=== PATIENT | female | born 1960 | race Caucasian/White ===

== ENCOUNTER 2016-06-24 09:55 | Inpatient (IN) | payer OTHER ==
[~2016-06-24] VITALS: Ht 149.9 cm; Wt 52.9 kg
[2016-06-24 09:57] VITALS: BP 134/85; PULSE 110; RESP 17; TEMP 98.6; O2SAT 97
[2016-06-24] MEDS ORDERED: ASPI1TAB69 PO (12:22)
[2016-06-24] MEDS ORDERED: NAPR220T95 PO (12:22)
[2016-06-24 12:27] LABS: AUTOMATED NEUTROPHIL # 8.7 TH/MM3 (1.8-7.7); BASOPHIL # 0.1 TH/MM3 (0-0.2); BASOPHIL % 0.5 % (0.0-2.0); EOSINOPHIL # 0.1 TH/MM3 (0-0.4); EOSINOPHIL % 0.5 % (0.0-4.0); HEMATOCRIT 43.9 % (35.0-46.0); HEMO FLAGS DIFF FINAL; MEAN CELL VOLUME 95.8 FL (80.0-100.0); MEAN CORPUSCULAR HEMOGLOBIN 31.8 PG (27.0-34.0); MEAN CORPUSCULAR HGB CONC 33.1 % (32.0-36.0); PLATELET COUNT 339 TH/MM3 (150-450); RED BLOOD COUNT 4.59 MIL/MM3 (4.00-5.30); RED CELL DISTRIBUTION WIDTH 13.3 % (11.6-17.2); WHITE BLOOD COUNT 11.2 TH/MM3 (4.0-11.0)
[2016-06-24] MEDS ORDERED: SODIUM CHLOR 0.9% 1000 ML INJ 1,000 ML IV SCH (12:32)
[2016-06-24 12:34] LABS: BLOOD, URINE TRACE (NEG); GLUCOSE,URINE NEG (NEG); KETONE, URINE NEG (NEG); NITRITE,URINE NEG (NEG); URINE COLOR LIGHT-YELLOW (YELLW/STRAW)
[2016-06-24 12:37] LABS: COMMENT (UR) CULT NOT INDICATED; CULTURE IF INDICATED CULT NOT INDICATED
--- NOTE | 2016-06-24 12:37 | PD ---
HPI Chief Complaint: Abdominal Pain Time Seen by Provider: 12:33 Travel History International Travel<30 days: No Contact w/Intl Traveler<30days: No Traveled to known affect area: No History of Present Illness HPI 56-year-old female that presents to the ED for evaluation of lower abdominal pain when she has to go urinate. Per patient also and she has a bowel movement. Per patient she's had some symptoms like this for a couple months and her doctor is aware of them and she supposed to get a colonoscopy at some point. Per patient she has not had any particular testing done for this recently. Per patient before used to be more like a pressure but now is becoming more sharp. Per patient usually happens when she has to go urinate and she tries not to urinate because of the pain. Per patient the pain is in the bladder area but not really when she sees. Per patient she does have pain to move to the left quadrant. She denies any vaginal discharge or bleeding. She denies any bowel movement issues. She denies any fevers chills or sweats. No recent surgery to the abdomen and the only surgery she suffered had was a tubal ligation on her abdomen. She denies any trauma. Per patient the symptoms have been worsening this week. The patient since Monday the symptoms seemed to have progressively gotten worse and more painful where she doesn't want appear anymore because it causes her a lot of discomfort. She denies any blood in the urine. She has a history of kidney stones. Per patient the pain gets to be 8 out of 10-10 out of 10. She has not been able to follow with her doctor for this. Denies any chest pain or shortness of breath. No other medical problems reported to me today. PFSH Past Medical History Diminished Hearing: No Respiratory: Yes (EMPHYSEMA, COPD , MASS RIGHT LUNG) Tetanus Vaccination: > 5 Years Influenza Vaccination: No ?: Not Menopausal: Yes Past Surgical History Other Surgery: Yes (brain sx/ cyst removed righ breast) Social History Alcohol Use: Yes (every day a couple beers) Tobacco Use: Yes Substance Use: No Allergies-Medications (Allergen,Severity, Reaction): Coded Allergies: No Known Allergies (Unverified , 06/24/16) Reported Meds & Prescriptions Reported Meds & Active Scripts Active Reported Aspirin 81 Mg Tabdr 81 Mg PO DAILY Aleve (Naproxen Sodium) 220 Mg Tab 220 Mg PO BID PRN Review of Systems Except as stated in HPI: all other systems reviewed are Neg Physical Exam Narrative GENERAL: SKIN: Warm and dry. HEAD: Atraumatic. Normocephalic. EYES: Pupils equal and round. No scleral icterus. No injection or drainage. ENT: No nasal bleeding or discharge. Mucous membranes pink and moist. NECK: Trachea midline. No JVD. CARDIOVASCULAR: Regular rate and rhythm. No murmurs, S3, S4. RESPIRATORY: No accessory muscle use. Clear to auscultation. Breath sounds equal bilaterally. GASTROINTESTINAL: Abdomen soft, tender with palpation on the lower quadrant of the abdomen especially on the pelvic area, nondistended. Hepatic and splenic margins not palpable. MUSCULOSKELETAL: Extremities without clubbing, cyanosis, or edema. No obvious deformities. Full range of motion of the upper and lower extremities bilaterally. 2+ pulses bilaterally. NEUROLOGICAL: Awake and alert. No obvious cranial nerve deficits. Motor grossly within normal limits. Five out of 5 muscle strength in the arms and legs. Normal speech. PSYCHIATRIC: Appropriate mood and affect; insight and judgment normal. Data Data Last Documented VS Vital Signs Date Time Temp Pulse Resp B/P Pulse Ox O2 Delivery O2 Flow Rate FiO2 06/24/16 13:51 98.2 87 16 143/73 98 Room Air Orders Complete Blood Count With Diff (06/24/16 10:18) Comprehensive Metabolic Panel (06/24/16 10:18) Urinalysis - C+S If Indicated (06/24/16 10:18) Lipase (06/24/16 10:18) Ct Abd/Pel W Iv Contrast(Rout) (06/24/16 12:32) Iv Access Insert/Monitor (06/24/16 12:32) Sodium Chlor 0.9% 1000 Ml Inj (Ns 1000 M (06/24/16 12:32) Ketorolac Inj (Toradol Inj) (06/24/16 12:45) Iohexol 350 Inj (Omnipaque 350 Inj) (06/24/16 13:11) Ciprofloxacin 400 Mg Premix (Cipro 400 M (06/24/16 13:45) Lactic Acid (06/24/16 13:38) Metronidazole 500 Mg Inj (Flagyl 500 Mg (06/24/16 13:45) Prothrombin Time / Inr (Pt) (06/24/16 13:40) Act Partial Throm Time (Ptt) (06/24/16 13:40) Labs Laboratory Tests Test 06/24/16 06/24/16 06/24/16 12:15 12:22 14:00 White Blood Count 11.2 TH/MM3 Red Blood Count 4.59 MIL/MM3 Hemoglobin 14.6 GM/DL Hematocrit 43.9 % Mean Corpuscular Volume 95.8 FL Mean Corpuscular Hemoglobin 31.8 PG Mean Corpuscular Hemoglobin 33.1 % Concent Red Cell Distribution Width 13.3 % Platelet Count 339 TH/MM3 Mean Platelet Volume 7.3 FL Neutrophils (%) (Auto) 77.0 % Lymphocytes (%) (Auto) 18.0 % Monocytes (%) (Auto) 4.0 % Eosinophils (%) (Auto) 0.5 % Basophils (%) (Auto) 0.5 % Neutrophils # (Auto) 8.7 TH/MM3 Lymphocytes # (Auto) 2.0 TH/MM3 Monocytes # (Auto) 0.4 TH/MM3 Eosinophils # (Auto) 0.1 TH/MM3 Basophils # (Auto) 0.1 TH/MM3 CBC Comment DIFF FINAL Differential Comment Sodium Level 141 MEQ/L Potassium Level 3.8 MEQ/L Chloride Level 105 MEQ/L Carbon Dioxide Level 29.0 MEQ/L Anion Gap 7 MEQ/L Blood Urea Nitrogen 7 MG/DL Creatinine 0.67 MG/DL Estimat Glomerular Filtration 91 ML/MIN Rate Random Glucose 90 MG/DL Calcium Level 9.7 MG/DL Total Bilirubin 0.5 MG/DL Aspartate Amino Transf 7 U/L (AST/SGOT) Alanine Aminotransferase 16 U/L (ALT/SGPT) Alkaline Phosphatase 105 U/L Total Protein 7.8 GM/DL Albumin 4.1 GM/DL Lipase 97 U/L Urine Color LIGHT-YELLOW Urine Turbidity CLEAR Urine pH 6.0 Urine Specific [place] 1.005 Urine Protein NEG mg/dL Urine Glucose (UA) NEG mg/dL Urine Ketones NEG mg/dL Urine Occult Blood TRACE Urine Nitrite NEG Urine Bilirubin NEG Urine Urobilinogen LESS THAN 2.0 MG/DL Urine Leukocyte Esterase NEG Urine RBC 2 /hpf Urine WBC 1 /hpf Microscopic Urinalysis Comment CULT NOT INDICATED Lactic Acid Level 1.4 mmol/L MDM Medical Decision Making Medical Screen Exam Complete: Yes Emergency Medical Condition: Yes Medical Record Reviewed: Yes Interpretation(s) CBC & BMP Diagram 06/24/16 12:15 LFTs and lipase WNL UA shows blood Last Impressions Abdomen/Pelvis CT 06/24/16 1232 Signed Impressions: Service Date/Time: Friday, June 24, 2016 13:10 - CONCLUSION: Edematous sigmoid colon characteristic of diverticulitis. 2.7 cm pericolonic fluid collection along the sigmoid colon which may or present a small contained perforation. No evidence of free air or significant free fluid accumulation. Santino Elizabeth MD Differential Diagnosis Pelvic pain versus abdominal pain versus UTI versus cystitis versus kidney infection versus diverticulitis Narrative Course 56-year-old female that presents to the ED for evaluation of lower abdominal discomfort. Patient was properly examined and was found to have signs and symptoms consistent appears to be abdominal pain. Unclear etiology. Does appear to be more urinary but cannot rule out any other disease. I do recommends imaging and labs as well as IV fluids and pain medications. Patient' s ago with this plan. Labs and imaging showed what appears to be diverticulitis with possible perforation. Case was discussed in my attending who agrees with plan. General surgery Dr. Hyatt was consulted who wants to see the patient before making decision for admission. Antibiotics IV started. Dr Hyatt came and evaluated patient and agrees to admission Diagnosis Primary Impression: Diverticulitis large intestine Qualified Code: K57.20 - Diverticulitis of large intestine with perforation without bleeding Admitting Information Admitting Physician Requests: Admit Leonardo Aldridge Jun 24, 2016 12:37
[2016-06-24 12:43] LABS: ALT (GPT) 16 U/L (10-53); ANION GAP 7 MEQ/L (5-15); AST (GOT) 7 U/L (15-37); BLOOD UREA NITROGEN 7 MG/DL (7-18); CHLORIDE 105 MEQ/L (98-107); GLOMERULAR FILTRATION RATE 91 ML/MIN (>89); POTASSIUM 3.8 MEQ/L (3.5-5.1); SODIUM (NA) 141 MEQ/L (136-145)
[2016-06-24 12:45] LABS: ALKALINE PHOSPHATASE 105 U/L (45-117); TOTAL BILIRUBIN ADULT 0.5 MG/DL (0.2-1.0)
[2016-06-24] MEDS ORDERED: KETOROLAC TROMETHAMINE 30 MG/ML (IVP) VIAL IVP ONE (12:45)
[2016-06-24 12:52] VITALS: BP 132/77; PULSE 76; RESP 16; TEMP 98.2; O2SAT 97
[2016-06-24] MEDS ORDERED: IOHEXOL 350 MG/ML 10 ML VIAL (for RAD DIAG) IV ONE (13:11)
--- NOTE | 2016-06-24 13:31 | RADRPT ---
EXAM DATE/TIME: 06/24/2016 13:10 [facility] COMPARISON: No previous studies available for comparison. INDICATIONS : Hypogastric abdominal pain with urination and bowel movements for 2 months. IV CONTRAST: 67 cc Omnipaque 350 (iohexol) IV ORAL CONTRAST: No oral contrast ingested. RADIATION DOSE: 4.49 CTDIvol (mGy) MEDICAL HISTORY : Chronic obstructive pulmonary disease. Right lung mass. SURGICAL HISTORY : Brain surgery. ENCOUNTER: Initial ACUITY: 2 months PAIN SCALE: 6/10 LOCATION: Hypogastric abdomen/pelvis TECHNIQUE: Volumetric scanning of the abdomen and pelvis was performed. Using automated exposure control and ad justment of the mA and/or kV according to patient size, radiation dose was kept as low as reasonably achievable to obtain optimal diagnostic quality images. FINDINGS: LOWER LUNGS: The visualized lower lungs are clear. LIVER: Homogeneous density without lesion. There is no dilation of the biliary tree. No calcified gallston es. SPLEEN: Normal size without lesion. PANCREAS: Within normal limits. KIDNEYS: Normal in size and shape. There is no mass, stone or hydronephrosis. ADRENAL GLANDS: Within normal limits. VASCULAR: There is no aortic aneurysm. BOWEL/MESENTERY: The sigmoid colon demonstrates wall thickening and an edematous appearance. There are small associate d diverticula. A 2.7 cm fluid collection along the mid sigmoid wall containing an air bubble is noted . This tract is otherwise unremarkable. There is evidence of significant ileus or free air. ABDOMINAL WALL: Within normal limits. RETROPERITONEUM: There is no lymphadenopathy. BLADDER: No wall thickening or mass. REPRODUCTIVE: Within normal limits. INGUINAL: There is no lymphadenopathy or hernia. MUSCULOSKELETAL: Within normal limits for patient age. CONCLUSION: Edematous sigmoid colon characteristic of diverticulitis. 2.7 cm pericolonic fluid collection along the sigmoid colon which may or present a small contained pe rforation. No evidence of free air or significant free fluid accumulation. Santino Elizabeth MD on June 24, 2016 at 13:24 Board Certified Radiologist. This report was verified electronically.
[2016-06-24] MEDS ORDERED: metroNIDAZOLE 500 MG INJ 100 ML IV ONE (13:45)
[2016-06-24] MEDS ORDERED: CIPROFLOXACIN 400 MG PREMIX 200 ML IV ONE (13:45)
[2016-06-24 13:51] VITALS: BP 143/73; PULSE 87; RESP 16; TEMP 98.2; O2SAT 98
[2016-06-24] MEDS ORDERED: ONDANSETRON HCL 4 MG/2 ML VIAL IV PRN (15:15)
[2016-06-24] MEDS ORDERED: SODIUM CHLORIDE 0.9% FLUSH 5 ML FLUSH IV PRN (15:15)
[2016-06-24] MEDS ORDERED: MORPHINE SULFATE 4 MG/ML INJ IV PUSH PRN (15:15)
[2016-06-24] MEDS: D5-1/2 NS + KCL 20 MEQ INJ 1,000 ML IV SCH (15:31)
[2016-06-24] MEDS: oxyCODONE/ACETAMINOPHEN 5 MG/325 MG TAB PO PRN ×3 (15:34→19:27)
[2016-06-24 15:43] VITALS: BP 130/72; PULSE 86; RESP 16; TEMP 98.1; O2SAT 99
[2016-06-24 17:35] VITALS: BP 127/84; PULSE 71; RESP 20; TEMP 96.5; O2SAT 99
[2016-06-24 20:00] VITALS: BP 104/72; PULSE 71; RESP 16; TEMP 97.2; O2SAT 98
[2016-06-24] MEDS: SODIUM CHLORIDE 0.9% FLUSH 5 ML FLUSH IV SCH (21:00)
--- NOTE | 2016-06-24 21:01 | HHI.HP ---
HPI Service [facility] General Surgery Primary Care Physician Jet Hwang M.D. Admission Diagnosis acute diverticulitis with perforation Chief Complaint: Abdominal pain History of Present Illness This is a 56 yo F with lower abdominal pain since Monday. She has had pressure in the lower abdomen for a few weeks at least, which is worse when urinating or having a bowel movt. However, on Monday the pressure became more severe. She has still been eating regularly, but has noticed chills especially at night. For a long time she regularly has had multiple bowel movts in the morning time. She states she has a newly diagnosed lung mass which is in the process of being further evaluated. She has been found to hav mild leukocytosis and CT a/p revealing sigmoid diverticulitis with probably associated abscess. Review of Systems Constitutional: COMPLAINS OF: Fever, Chills Eyes: DENIES: Eye inflammation, Eye pain Respiratory: DENIES: Cough, Shortness of breath Cardiovascular: DENIES: Chest pain Gastrointestinal: COMPLAINS OF: Abdominal pain, DENIES: Nausea, Vomiting Musculoskeletal: DENIES: Muscle aches, Stiffness Integumentary: DENIES: Pruritus, Rash Neurologic: DENIES: Localized weakness, Paresthesias Past Family Social History Past Medical History COPD Lung mass Past Surgical History Tubal ligation right breast biopsy Brain surgery for AV fistula? Reported Medications Reported Meds & Active Scripts Active Reported Aspirin 81 Mg Tabdr 81 Mg PO DAILY Aleve (Naproxen Sodium) 220 Mg Tab 220 Mg PO BID PRN Allergies: Coded Allergies: No Known Allergies (Unverified , 06/24/16) Active Ordered Medications Current Medications Medications (Trade) Dose Ordered Sig/Neela Route Start Time Stop Time Status Last Admin (NS Flush) 2 ml UNSCH PRN IV 06/24/16 15:15 IV Flush 2 ml 2 ml BID IV 06/24/16 21:00 Levofloxacin/ Dextrose 100 ml @ 100 mls/hr Q24H IV 06/25/16 14:00 (Flagyl 500 Mg Inj) 100 ml @ 100 mls/hr Q8H IV 06/24/16 22:00 Ondansetron HCl 4 mg 4 mg Q6H PRN IV 06/24/16 15:15 (D5-1/2 NS + KCl 20 Meq Inj) 1,000 ml @ 100 mls/hr Q10H IV 06/24/16 15:03 06/24/16 15:31 (Percocet 5-325 Mg) 1 tab Q4H PRN PO 06/24/16 15:15 (Percocet 5-325 Mg) 2 tab Q4H PRN PO 06/24/16 15:15 06/24/16 19:27 (Morphine Inj) 2 mg Q3H PRN IV PUSH 06/24/16 15:15 Family History Noncontributory Social History Drinks 2-3 beers nightly. Smokes 1ppd. No drug use. Physical Exam Vital Signs Vital Signs Date Time Temp Pulse Resp B/P Pulse Ox O2 Delivery O2 Flow Rate FiO2 06/24/16 20:00 97.2 71 16 104/72 98 06/24/16 17:35 96.5 71 20 127/84 99 06/24/16 16:35 16 06/24/16 15:43 98.1 86 16 130/72 99 Room Air 06/24/16 13:51 98.2 87 16 143/73 98 Room Air 06/24/16 13:41 16 06/24/16 12:52 98.2 76 16 132/77 97 Room Air 06/24/16 12:20 16 06/24/16 09:57 98.6 110 17 134/85 97 Physical Exam GENERAL: NAD, alert and oriented SKIN: Warm and dry. HEAD: Normocephalic. EYES: No scleral icterus. No injection or drainage. NECK: Supple, trachea midline. No JVD or lymphadenopathy. CARDIOVASCULAR: Regular rate and rhythm without murmurs, gallops, or rubs. RESPIRATORY: Breath sounds equal bilaterally. No accessory muscle use. GASTROINTESTINAL: Abdomen soft. Moderate ttp suprapubic. Mild pain in suprapubic area with percussion of remainder of abdomen. No guarding. MUSCULOSKELETAL: No cyanosis, or edema. BACK: Nontender without obvious deformity. Laboratory Laboratory Tests Test 06/24/16 06/24/16 06/24/16 12:15 12:22 14:00 White Blood Count 11.2 Red Blood Count 4.59 Hemoglobin 14.6 Hematocrit 43.9 Mean Corpuscular Volume 95.8 Mean Corpuscular Hemoglobin 31.8 Mean Corpuscular Hemoglobin 33.1 Concent Red Cell Distribution Width 13.3 Platelet Count 339 Mean Platelet Volume 7.3 Neutrophils (%) (Auto) 77.0 Lymphocytes (%) (Auto) 18.0 Monocytes (%) (Auto) 4.0 Eosinophils (%) (Auto) 0.5 Basophils (%) (Auto) 0.5 Neutrophils # (Auto) 8.7 Lymphocytes # (Auto) 2.0 Monocytes # (Auto) 0.4 Eosinophils # (Auto) 0.1 Basophils # (Auto) 0.1 CBC Comment DIFF FINAL Differential Comment Sodium Level 141 Potassium Level 3.8 Chloride Level 105 Carbon Dioxide Level 29.0 Anion Gap 7 Blood Urea Nitrogen 7 Creatinine 0.67 Estimat Glomerular Filtration 91 Rate Random Glucose 90 Calcium Level 9.7 Total Bilirubin 0.5 Aspartate Amino Transf 7 (AST/SGOT) Alanine Aminotransferase 16 (ALT/SGPT) Alkaline Phosphatase 105 Total Protein 7.8 Albumin 4.1 Lipase 97 Urine Color LIGHT-YELLOW Urine Turbidity CLEAR Urine pH 6.0 Urine Specific [place] 1.005 Urine Protein NEG Urine Glucose (UA) NEG Urine Ketones NEG Urine Occult Blood TRACE Urine Nitrite NEG Urine Bilirubin NEG Urine Urobilinogen LESS THAN 2.0 Urine Leukocyte Esterase NEG Urine RBC 2 Urine WBC 1 Microscopic Urinalysis Comment CULT NOT INDICATED Lactic Acid Level 1.4 Result Diagram: 06/24/16 1215 06/24/16 1215 Imaging Last Impressions Abdomen/Pelvis CT 06/24/16 1232 Signed Impressions: Service Date/Time: Friday, June 24, 2016 13:10 - CONCLUSION: Edematous sigmoid colon characteristic of diverticulitis. 2.7 cm pericolonic fluid collection along the sigmoid colon which may or present a small contained perforation. No evidence of free air or significant free fluid accumulation. Santino Elizabeth MD Assessment and Plan Assessment and Plan 56 yo F with diverticulitis with abscess. I do not recommend IR drainage right now as the abscess is <3cm, medial to colon , and may be in continuity with the colon. Place in IVF and IV antibiotics. I will give her clears. I'm gonna check c dif due to her frequent BMs and also looks like some colon thickening on CT. Sharad Hyatt MD Jun 24, 2016 21:01
[2016-06-24] MEDS: metroNIDAZOLE 500 MG INJ 100 ML IV SCH (21:32)
[2016-06-24 21:42] LABS: APTT (PATIENT) 28.7 SEC (24.3-30.1); INTERNATIONAL NORMALIZED RATIO 0.9 RATIO; PROTHROMBIN TIME - PATIENT 10.4 SEC (9.8-11.6)
[2016-06-25] VITALS: BP_SYST 105; BP_SYST 93; BP_DIAS 54; BP_DIAS 70; PULSE 70; RESP 16; RESP 18; TEMP 97.3; TEMP 98.3; O2SAT 97
[2016-06-25] MEDS: D5-1/2 NS + KCL 20 MEQ INJ 1,000 ML IV SCH ×2 (02:02→13:40)
[2016-06-25] MEDS: oxyCODONE/ACETAMINOPHEN 5 MG/325 MG TAB PO PRN ×4 (03:46→19:00)
[2016-06-25 04:00] VITALS: BP 95/60; PULSE 71; RESP 18; TEMP 97.1; O2SAT 97
[2016-06-25] MEDS: metroNIDAZOLE 500 MG INJ 100 ML IV SCH ×3 (05:41→21:16)
[2016-06-25 08:00] VITALS: BP 113/76; PULSE 75; RESP 16; TEMP 95.7; O2SAT 98
[2016-06-25] MEDS: SODIUM CHLORIDE 0.9% FLUSH 5 ML FLUSH IV SCH ×2 (08:19→21:00)
[2016-06-25 08:24] LABS: AUTOMATED NEUTROPHIL # 5.1 TH/MM3 (1.8-7.7); BASOPHIL % 0.5 % (0.0-2.0); EOSINOPHIL # 0.1 TH/MM3 (0-0.4); HEMATOCRIT 34.9 % (35.0-46.0); HEMO FLAGS DIFF FINAL; LYMPH % 18.7 % (9.0-44.0); LYMPHOCYTE # 1.3 TH/MM3 (1.0-4.8); MEAN CELL VOLUME 96.3 FL (80.0-100.0); MEAN CORPUSCULAR HEMOGLOBIN 31.5 PG (27.0-34.0); MEAN CORPUSCULAR HGB CONC 32.7 % (32.0-36.0); MONO % 6.9 % (0.0-8.0); NEUT % 72.9 % (16.0-70.0); PLATELET COUNT 274 TH/MM3 (150-450); RED BLOOD COUNT 3.63 MIL/MM3 (4.00-5.30); RED CELL DISTRIBUTION WIDTH 12.8 % (11.6-17.2)
[2016-06-25 12:00] VITALS: BP 86/56; PULSE 71; RESP 16; TEMP 95.5; O2SAT 98
[2016-06-25] MEDS: LEVOFLOXACIN 500 MG PREMIX INJ 100 ML IV SCH (13:44)
--- NOTE | 2016-06-25 15:50 | HHI.PR ---
Subjective Subjective Notes The patient feels slightly better today with decreased abdominal pain. She is passing flatus, but has had no bowel movements. She has no nausea or vomiting and has been tolerating the clear liquid diet. She has no other complaints. Objective Vitals/I&O Vital Signs Date Time Temp Pulse Resp B/P Pulse Ox O2 Delivery O2 Flow Rate FiO2 06/25/16 12:00 95.5 71 16 86/56 98 06/24/16 15:43 Room Air Labs Laboratory Tests Test 06/24/16 06/25/16 20:30 06:43 Prothrombin Time 10.4 Prothromb Time International 0.9 Ratio Activated Partial 28.7 Thromboplast Time White Blood Count 7.0 Red Blood Count 3.63 Hemoglobin 11.4 Hematocrit 34.9 Mean Corpuscular Volume 96.3 Mean Corpuscular Hemoglobin 31.5 Mean Corpuscular Hemoglobin 32.7 Concent Red Cell Distribution Width 12.8 Platelet Count 274 Mean Platelet Volume 7.7 Neutrophils (%) (Auto) 72.9 Lymphocytes (%) (Auto) 18.7 Monocytes (%) (Auto) 6.9 Eosinophils (%) (Auto) 1.0 Basophils (%) (Auto) 0.5 Neutrophils # (Auto) 5.1 Lymphocytes # (Auto) 1.3 Monocytes # (Auto) 0.5 Eosinophils # (Auto) 0.1 Basophils # (Auto) 0.0 CBC Comment DIFF FINAL Differential Comment Radiology Last Impressions Abdomen/Pelvis CT 06/24/16 1232 Signed Impressions: Service Date/Time: Friday, June 24, 2016 13:10 - CONCLUSION: Edematous sigmoid colon characteristic of diverticulitis. 2.7 cm pericolonic fluid collection along the sigmoid colon which may or present a small contained perforation. No evidence of free air or significant free fluid accumulation. Santino Elizabeth MD Cardiovascular: Regular Lungs: Clear Abdomen: Non-distended Narrative Exam The abdomen is tender to palpation in the left lower quadrant but there is no generalized peritonitis. She has mild voluntary guarding but no involuntary guarding or rebound tenderness. A/P Assessment and Plan Impression: Diverticulitis with small localized perforation. She is showing clinical improvement. Plan: I will leave her on IV antibiotics today and advance her to a full liquid diet. Neri Wilkes MD Jun 25, 2016 15:50
[2016-06-25 16:00] VITALS: BP 107/64; PULSE 77; RESP 16; TEMP 97.4; O2SAT 97
[2016-06-25 20:00] VITALS: BP 122/79; PULSE 77; RESP 18; TEMP 97.2; O2SAT 95
[2016-06-26] VITALS: BP 105/70; PULSE 70; RESP 18; TEMP 98.3; O2SAT 97
[2016-06-26 04:00] VITALS: BP 118/79; PULSE 78; RESP 16; TEMP 97.5; O2SAT 96
[2016-06-26] MEDS: metroNIDAZOLE 500 MG INJ 100 ML IV SCH ×3 (06:03→22:29)
[2016-06-26] MEDS: oxyCODONE/ACETAMINOPHEN 5 MG/325 MG TAB PO PRN ×3 (06:03→19:57)
[2016-06-26 08:00] VITALS: BP 109/65; PULSE 84; RESP 16; TEMP 96.4; O2SAT 92
[2016-06-26 08:24] LABS: AUTOMATED NEUTROPHIL # 5.8 TH/MM3 (1.8-7.7); BASOPHIL % 0.4 % (0.0-2.0); EOSINOPHIL # 0.1 TH/MM3 (0-0.4); EOSINOPHIL % 0.9 % (0.0-4.0); HEMATOCRIT 35.9 % (35.0-46.0); HEMO FLAGS DIFF FINAL; LYMPH % 14.6 % (9.0-44.0); LYMPHOCYTE # 1.1 TH/MM3 (1.0-4.8); MEAN CELL VOLUME 93.9 FL (80.0-100.0); MEAN CORPUSCULAR HEMOGLOBIN 31.4 PG (27.0-34.0); MEAN CORPUSCULAR HGB CONC 33.5 % (32.0-36.0); MONO % 6.8 % (0.0-8.0); NEUT % 77.3 % (16.0-70.0); PLATELET COUNT 295 TH/MM3 (150-450); RED BLOOD COUNT 3.82 MIL/MM3 (4.00-5.30); RED CELL DISTRIBUTION WIDTH 12.7 % (11.6-17.2); WHITE BLOOD COUNT 7.5 TH/MM3 (4.0-11.0)
[2016-06-26] MEDS: SODIUM CHLORIDE 0.9% FLUSH 5 ML FLUSH IV SCH ×2 (08:25→20:00)
[2016-06-26] MEDS: NICOTINE 14 MG/24 HR PATCH TD SCH (08:25)
[2016-06-26 12:00] VITALS: BP 116/70; PULSE 77; RESP 14; TEMP 96.8; O2SAT 93
[2016-06-26 16:00] VITALS: BP 99/68; PULSE 78; RESP 16; TEMP 96.4; O2SAT 95
[2016-06-26] MEDS: D5-1/2 NS + KCL 20 MEQ INJ 1,000 ML IV SCH (16:04)
[2016-06-26] MEDS: LEVOFLOXACIN 500 MG PREMIX INJ 100 ML IV SCH (16:05)
--- NOTE | 2016-06-26 16:39 | HHI.PR ---
Subjective Subjective Notes The patient states that her pain is a little bit better yet today. She has passed some flatus, but not much. She's had no bowel movement. She states that her left lower abdomen is still somewhat painful particularly when she moves around. She has no other complaints. She is still tolerating a full liquid diet. Objective Vitals/I&O Vital Signs Date Time Temp Pulse Resp B/P Pulse Ox O2 Delivery O2 Flow Rate FiO2 06/26/16 16:00 96.4 78 16 99/68 95 06/24/16 15:43 Room Air Labs Laboratory Tests Test 06/26/16 07:05 White Blood Count 7.5 Red Blood Count 3.82 Hemoglobin 12.0 Hematocrit 35.9 Mean Corpuscular Volume 93.9 Mean Corpuscular Hemoglobin 31.4 Mean Corpuscular Hemoglobin 33.5 Concent Red Cell Distribution Width 12.7 Platelet Count 295 Mean Platelet Volume 7.8 Neutrophils (%) (Auto) 77.3 Lymphocytes (%) (Auto) 14.6 Monocytes (%) (Auto) 6.8 Eosinophils (%) (Auto) 0.9 Basophils (%) (Auto) 0.4 Neutrophils # (Auto) 5.8 Lymphocytes # (Auto) 1.1 Monocytes # (Auto) 0.5 Eosinophils # (Auto) 0.1 Basophils # (Auto) 0.0 CBC Comment DIFF FINAL Differential Comment Radiology Last Impressions Abdomen/Pelvis CT 06/24/16 1232 Signed Impressions: Service Date/Time: Friday, June 24, 2016 13:10 - CONCLUSION: Edematous sigmoid colon characteristic of diverticulitis. 2.7 cm pericolonic fluid collection along the sigmoid colon which may or present a small contained perforation. No evidence of free air or significant free fluid accumulation. Santino Elizabeth MD Narrative Exam The abdomen remains somewhat tender to palpation in the left lower quadrant. She has no guarding or rebound tenderness at this point. A/P Assessment and Plan Impression: Diverticulitis with small localized perforation. She continues to show clinical improvement. Plan: I will leave her on IV antibiotics for at least 1 more day. Her diet will be kept at full liquids. Repeat CBC only as necessary. Neri Wilkes MD Jun 26, 2016 16:39
[2016-06-26 20:00] VITALS: BP 114/71; PULSE 72; RESP 18; TEMP 96.8; O2SAT 98
[2016-06-26] MEDS: REMOVE OLD NICODERM (NICOTINE) PATCH TD SCH (21:00)
[2016-06-27] VITALS: BP 154/77; PULSE 75; RESP 17; TEMP 96.6; O2SAT 99
[2016-06-27 04:00] VITALS: BP 150/76; PULSE 78; RESP 19; TEMP 96.4; O2SAT 99
[2016-06-27] MEDS: metroNIDAZOLE 500 MG INJ 100 ML IV SCH ×2 (05:42→13:06)
[2016-06-27] MEDS: D5-1/2 NS + KCL 20 MEQ INJ 1,000 ML IV SCH (05:43)
[2016-06-27] MEDS: oxyCODONE/ACETAMINOPHEN 5 MG/325 MG TAB PO PRN ×2 (06:32→16:07)
[2016-06-27 07:30] VITALS: BP 134/83; PULSE 89; RESP 20; TEMP 95.5; O2SAT 96
[2016-06-27] MEDS: SODIUM CHLORIDE 0.9% FLUSH 5 ML FLUSH IV SCH (09:00)
[2016-06-27] MEDS: REMOVE OLD NICODERM (NICOTINE) PATCH TD SCH (09:49)
[2016-06-27] MEDS: NICOTINE 14 MG/24 HR PATCH TD SCH (09:49)
[2016-06-27 11:00] VITALS: BP 152/89; PULSE 82; RESP 20; TEMP 95.2; O2SAT 99
[2016-06-27] MEDS ORDERED: CIPR-9 PO (13:14)
[2016-06-27] MEDS ORDERED: OXYC1TAB63 PO (13:14)
[2016-06-27] MEDS ORDERED: METR-1 PO (13:14)
[2016-06-27] MEDS ORDERED: MAGNESIUM HYDROXIDE SUSP 30 ML CUP PO ONE (13:15)
--- NOTE | 2016-06-27 13:15 | HHI.DS ---
Discharge Summary Admission Date Jun 24, 2016 at 15:03 Discharge Date: Jun 27, 2016 Admitting Diagnosis acute diverticulitis with perforation Brief History This is a 56 yo F with lower abdominal pain since Monday. She has had pressure in the lower abdomen for a few weeks at least, which is worse when urinating or having a bowel movt. However, on Monday the pressure became more severe. She has still been eating regularly, but has noticed chills especially at night. For a long time she regularly has had multiple bowel movts in the morning time. She states she has a newly diagnosed lung mass which is in the process of being further evaluated. She has been found to hav mild leukocytosis and CT a/p revealing sigmoid diverticulitis with probably associated abscess. CBC/BMP: 06/26/16 0705 06/24/16 1215 Significant Findings Laboratory Tests Test 06/25/16 06/26/16 06:43 07:05 Red Blood Count 3.63 MIL/MM3 3.82 MIL/MM3 (4.00-5.30) (4.00-5.30) Hemoglobin 11.4 GM/DL (11.6-15.3) Hematocrit 34.9 % (35.0-46.0) Neutrophils (%) (Auto) 72.9 % 77.3 % (16.0-70.0) (16.0-70.0) PE at Discharge NAD, anxious Abd soft, min lower abdominal ttp, no rebound or guarding Hospital Course Tolerated clears and then full liquids. Abd pain significantly improved. WBC normalized. Passing flatus. Pt Condition on Discharge: Good Discharge Disposition: Discharge Home Discharge Instructions DIET: Follow Instructions for: Low Residue Diet Activities you can perform: Regular-No Restrictions Follow up Referrals: Surgical - 2 Weeks with Sharad Hyatt MD New Medications: Ciprofloxacin (Cipro) 500 Mg Tab 500 MG PO BID Infection #20 Ref 0 TAB Metronidazole (Flagyl) 500 Mg Tab 500 MG PO TID Infection #30 Ref 0 TAB Oxycodone-Acetaminophen (Oxycodone-Acetaminophen) 5-325 mg Tab 1-2 TAB PO Q4H PRN PAIN #30 TAB Sharad Hyatt MD Jun 27, 2016 13:15
[2016-06-27] MEDS: LEVOFLOXACIN 500 MG PREMIX INJ 100 ML IV SCH (14:09)
[2016-06-27 15:50] VITALS: BP 154/90; PULSE 72; RESP 20; TEMP 95.4; O2SAT 96
== END 2016-06-27 20:18 | disposition home or self-care (01) | DRG 392 ==
LOC: NEPC 09:55 → NEDA 15:03 → HOCA 17:42
PROVIDERS: ADMIT Surgery; ATTEND Surgery
DX: K57.20 Diverticulitis of large intestine with perforation and abscess without bleeding (principal); J44.9 Chronic obstructive pulmonary disease, unspecified; R91.8 Other nonspecific abnormal finding of lung field; F17.210 Nicotine dependence, cigarettes, uncomplicated; Z87.442 Personal history of urinary calculi
CPT/HCPCS: 74177; 80053; 81001; 83605; 83690; 85025; 85610; 85730; 96361; 96365; 96368; 96375; J0744; J1885; J1956; J2405; J3480; J7030; Q9967

== ENCOUNTER → 2017-05-18 | Day surgery (SDC) | payer OTHER ==
[2017-05-17 11:50] VITALS: BP 120/71; PULSE 87; RESP 20; TEMP 98.8; O2SAT 97
[~2017-05-18] VITALS: Ht 149.9 cm; Wt 53.1 kg
[~2017-05-18] MED LIST: ACETAMINOPHEN 1000 MG/100 ML 100 ML IV SCH; ALVIMOPAN 12 MG CAPSULE - On Call PO SCH; ALVIMOPAN 12 MG CAPSULE - Post-op dosing PO SCH; BUPIVACAINE LIPOSOME PF 1.3% 20 ML VIAL ONE; CHLORHEXIDINE GLUCONATE 2 % 1 PACK (2 CLOTHS) TOPICAL PRN; INSULIN HUMAN REGULAR 1,000 UNITS/10 ML VIAL SQ PRN; LACTATED RINGER'S 1000 ML IV PRN; METOPROLOL TARTRATE 25 MG TAB PO PRN; METRONIDAZOLE 500 MG/100 ML ISONTONIC SOLN IV SCH; POVIDONE IODINE 5% (ANTISEPSIS KIT) 4 APPLICATIONS EACH NARE PRN; SODIUM CHLORID 0.9% 500 ML IV PRN; ceFAZolin 2 GM PREMIX 50 ML IV SCH
== END | disposition home or self-care (01) ==
LOC: HSDI 05-17 10:49 → UNDOADMIN 05-17 10:49 → EDSTATUS 05-17 15:30 → HSDC 10:49 → HSDI 10:49
PROVIDERS: ATTEND Surgery
DX: K57.32 Diverticulitis of large intestine without perforation or abscess without bleeding (principal); Z53.09 Procedure and treatment not carried out because of other contraindication
CPT/HCPCS: 86850; 86900; 86901; C9290; G0463; J7120; 99211

== ENCOUNTER 2017-06-07 09:54 | Inpatient (IN) | payer OTHER ==
[~2017-06-07] VITALS: Ht 149.9 cm; Wt 57.5 kg
[2017-06-07] MEDS ORDERED: BUPIVACAINE/EPINEPHRINE 0.25% PF 30 ML VIAL ONE (10:27)
[2017-06-07] MEDS ORDERED: METOPROLOL TARTRATE 25 MG TAB PO PRN (10:30)
[2017-06-07] MEDS ORDERED: POVIDONE IODINE 5% (ANTISEPSIS KIT) 4 APPLICATIONS EACH NARE PRN (10:30)
[2017-06-07] MEDS ORDERED: SODIUM CHLORID 0.9% 500 ML IV PRN (10:30)
[2017-06-07] MEDS ORDERED: ACETAMINOPHEN 1000 MG/100 ML 100 ML IV SCH (10:30)
[2017-06-07] MEDS ORDERED: ceFAZolin 2 GM PREMIX 50 ML IV SCH (10:30)
[2017-06-07] MEDS ORDERED: LACTATED RINGER'S 1000 ML IV PRN (10:30)
[2017-06-07] MEDS ORDERED: metroNIDAZOLE 500 MG INJ 100 ML IV SCH (10:30)
[2017-06-07] MEDS ORDERED: CHLORHEXIDINE GLUCONATE 2 % 1 PACK (2 CLOTHS) TOPICAL PRN (10:30)
[2017-06-07] MEDS ORDERED: ALVIMOPAN 12 MG CAPSULE - On Call PO SCH (10:45)
[2017-06-07] MEDS ORDERED: BUPIVACAINE HCL PF 0.25% 30 ML VIAL ONE (11:15)
[2017-06-07] MEDS ORDERED: BUPIVACAINE LIPOSOME PF 1.3% 20 ML VIAL ONE (11:15)
[2017-06-07] MEDS ORDERED: SODIUM CHLORIDE 0.9% 20 ML VIAL ONE (11:15)
[2017-06-07] MEDS ORDERED: GLUCAGON 1 MG/ML VIAL ONE (14:45)
[2017-06-07] MEDS ORDERED: ROCURONIUM INJ 50 MG/5 ML SYRINGE IV PUSH ONE (15:31)
[2017-06-07] MEDS ORDERED: HYDROmorphone HCL PCA 6 MG/30 ML IV SCH (17:00)
[2017-06-07] MEDS ORDERED: SODIUM CHLORIDE 0.9% FLUSH 10 ML FLUSH IV FLUSH PRN (17:00)
[2017-06-07] MEDS ORDERED: diphenhydrAMINE HCL 50 MG/ML VIAL IV PUSH PRN (17:00)
[2017-06-07] MEDS ORDERED: ONDANSETRON HCL 4 MG/2 ML VIAL IV PUSH PRN (17:00)
[2017-06-07] MEDS ORDERED: Post-op Orders (for Pharmacy) XX ONE (17:00)
[2017-06-07] MEDS ORDERED: PCA - TOTAL MG DILAUDID DELIVERED PER SHIFT OTHER SCH (17:00)
[2017-06-07] MEDS ORDERED: NALOXONE HCL 0.4 MG/ML AMP IV PUSH PRN ×3 (17:00→17:45)
[2017-06-07] MEDS ORDERED: MORPHINE SULFATE 30 MG/30 ML PCA ONE (17:29)
[2017-06-07] MEDS ORDERED: DO NOT ADM ANY ANTICOAGULANT DRUGS PRN (17:36)
[2017-06-07] MEDS ORDERED: *MEPERIDINE 25 MG INJ VIAL PERIprocedural Use ONLY ONE (17:40)
[2017-06-07] MEDS: MORPHINE SULFATE 30 MG/30 ML PCA IV SCH (17:53)
[2017-06-07] MEDS: LACTATED RINGER'S 1000 ML INJ 1,000 ML IV SCH (17:53)
[2017-06-07] MEDS ORDERED: MIDAZOLAM HCL 2 MG/2 ML VIAL ONE (17:57)
[2017-06-07] MEDS: KETOROLAC TROMETHAMINE 30 MG/ML (IVP) VIAL IV PUSH SCH (18:04)
[2017-06-07] MEDS ORDERED: *morphine SULFATE 4 MG/ML PERIprocedure ONLY ONE (18:19)
[2017-06-07] MEDS ORDERED: *ONDANSETRON 4 MG VIAL PERIprocedural Use ONLY ONE (18:36)
[2017-06-07 20:00] VITALS: BP 119/71; PULSE 82; RESP 17; TEMP 96.4; O2SAT 96
[2017-06-07] MEDS: PCA - TOTAL MG MORPHINE DELIVERED PER SHIFT SCH (22:00)
[2017-06-07] MEDS: PANTOPRAZOLE SODIUM 40 MG VIAL IV PUSH SCH (22:08)
[2017-06-07] MEDS: SODIUM CHLORIDE 0.9% FLUSH 10 ML FLUSH IV FLUSH SCH (22:11)
[2017-06-07] MEDS: ACETAMINOPHEN 1000 MG/100 ML 100 ML IV SCH (22:11)
[2017-06-08] VITALS (8 sets, daily range): BP systolic 93–151; BP diastolic 58–80; PULSE 75–85; RESP 18–20; TEMP 95.5–97.3; O2SAT 92–98
[2017-06-08] MEDS: LACTATED RINGER'S 1000 ML INJ 1,000 ML IV SCH ×3 (02:16→20:43)
[2017-06-08] MEDS: ACETAMINOPHEN 1000 MG/100 ML 100 ML IV SCH ×3 (02:19→12:52)
[2017-06-08] MEDS: KETOROLAC TROMETHAMINE 30 MG/ML (IVP) VIAL IV PUSH SCH ×4 (02:20→19:21)
[2017-06-08] MEDS: PCA - TOTAL MG MORPHINE DELIVERED PER SHIFT SCH ×3 (05:53→20:46)
[2017-06-08] MEDS: MORPHINE SULFATE 30 MG/30 ML PCA IV SCH ×2 (06:30→22:32)
[2017-06-08 08:09] LABS: AUTOMATED NEUTROPHIL # 5.7 TH/MM3 (1.8-7.7); BASOPHIL % 0.2 % (0.0-2.0); EOSINOPHIL % 0.2 % (0.0-4.0); HEMATOCRIT 33.6 % (35.0-46.0); HEMOGLOBIN 11.4 GM/DL (11.6-15.3); LYMPH % 20.3 % (9.0-44.0); LYMPHOCYTE # 1.6 TH/MM3 (1.0-4.8); MEAN CELL VOLUME 97.3 FL (80.0-100.0); MEAN CORPUSCULAR HGB CONC 33.9 % (32.0-36.0); MEAN PLATELET VOLUME 7.7 FL (7.0-11.0); MONO % 5.5 % (0.0-8.0); MONOCYTE # 0.4 TH/MM3 (0-0.9); NEUT % 73.8 % (16.0-70.0); PLATELET COUNT 206 TH/MM3 (150-450); RED BLOOD COUNT 3.46 MIL/MM3 (4.00-5.30); RED CELL DISTRIBUTION WIDTH 12.8 % (11.6-17.2); WHITE BLOOD COUNT 7.7 TH/MM3 (4.0-11.0)
[2017-06-08 08:30] LABS: BICARBONATE 25.6 MEQ/L (21.0-32.0); CALCIUM 7.4 MG/DL (8.5-10.1); CREATININE 0.54 MG/DL (0.50-1.00)
[2017-06-08 08:57] LABS: CALCIUM-PROTEIN CORRECTED 8.7 MG/DL (8.5-10.1); TOTAL PROTEIN 4.8 GM/DL (6.4-8.2)
[2017-06-08] MEDS: SODIUM CHLORIDE 0.9% FLUSH 10 ML FLUSH IV FLUSH SCH ×2 (09:00→21:00)
[2017-06-08] MEDS: ALVIMOPAN 12 MG CAPSULE - Post-op dosing PO SCH ×2 (09:08→20:46)
--- NOTE | 2017-06-08 12:27 | HHI.PR ---
Subjective Subjective Notes Mild nausea. Some flatus. Pain controlled. Objective Vitals/I&O Vital Signs Date Time Temp Pulse Resp B/P (MAP) Pulse Ox O2 Delivery O2 Flow Rate FiO2 06/08/17 11:33 95 Nasal Cannula 3.00 06/08/17 08:00 95.5 75 18 114/65 (81) Labs Laboratory Tests Test 06/08/17 05:34 White Blood Count 7.7 Red Blood Count 3.46 Hemoglobin 11.4 Hematocrit 33.6 Mean Corpuscular Volume 97.3 Mean Corpuscular Hemoglobin 33.0 Mean Corpuscular Hemoglobin Concent 33.9 Red Cell Distribution Width 12.8 Platelet Count 206 Mean Platelet Volume 7.7 Neutrophils (%) (Auto) 73.8 Lymphocytes (%) (Auto) 20.3 Monocytes (%) (Auto) 5.5 Eosinophils (%) (Auto) 0.2 Basophils (%) (Auto) 0.2 Neutrophils # (Auto) 5.7 Lymphocytes # (Auto) 1.6 Monocytes # (Auto) 0.4 Eosinophils # (Auto) 0.0 Basophils # (Auto) 0.0 CBC Comment DIFF FINAL Differential Comment Blood Urea Nitrogen 7 Creatinine 0.54 Random Glucose 82 Total Protein 4.8 Calcium Level 7.4 Sodium Level 142 Potassium Level 3.9 Chloride Level 106 Carbon Dioxide Level 25.6 Anion Gap 10 Estimat Glomerular Filtration Rate 117 Protein Corrected Calcium 8.7 Narrative Exam NAD Abd: moderate distention, inc c/d/i, SAURABH ss output Perales clear UOP A/P Assessment and Plan POD 1 robot assisted sigmoid resection and small bowel resection for diverticular disease, small bowel involved in abscess vs fistula. Doing well post op. D/c perales. Full liquids. 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 Xanax for anxiety. Sharad Hyatt MD Jun 08, 2017 12:27
[2017-06-08] MEDS: ALPRAZolam 0.25 MG TAB PO PRN (15:04)
[2017-06-08] MEDS: ENOXAPARIN SODIUM 40 MG/0.4 ML SYRINGE SQ SCH (17:23)
[2017-06-08] MEDS: PANTOPRAZOLE SODIUM 40 MG VIAL IV PUSH SCH (20:50)
[2017-06-09] VITALS (8 sets, daily range): BP systolic 131–178; BP diastolic 63–86; PULSE 79–93; RESP 17–20; TEMP 96.7–98.3; O2SAT 91–95
[2017-06-09] MEDS: ALPRAZolam 0.25 MG TAB PO PRN ×2 (01:42→18:47)
[2017-06-09] MEDS: KETOROLAC TROMETHAMINE 30 MG/ML (IVP) VIAL IV PUSH SCH ×4 (01:43→18:37)
[2017-06-09] MEDS: LACTATED RINGER'S 1000 ML INJ 1,000 ML IV SCH (05:00)
[2017-06-09] MEDS: PCA - TOTAL MG MORPHINE DELIVERED PER SHIFT SCH (05:04)
[2017-06-09] MEDS ORDERED: oxyCODONE/ACETAMINOPHEN 5 MG/325 MG TAB PO PRN (08:15)
--- NOTE | 2017-06-09 08:19 | HHI.PR ---
Subjective Subjective Notes Pain is controlled. Some nausea although may be associated with morphine. Tolerating some fulls. + flatus. Objective Vitals/I&O Vital Signs Date Time Temp Pulse Resp B/P (MAP) Pulse Ox O2 Delivery O2 Flow Rate FiO2 06/09/17 05:04 17 06/09/17 04:00 97.9 79 136/76 (96) 93 06/08/17 21:55 Nasal Cannula 3.00 Narrative Exam NAD Abd: moderate distention, inc c/d/i, SAURABH ss output A/P Assessment and Plan POD 2 robot assisted sigmoid resection and small bowel resection for diverticular disease, small bowel involved in abscess vs fistula. Progressing appropriately. Soft diet. 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 Toradol. PRN morphine. Xanax for anxiety. Likely d/c home next 24-48 hrs. Cont SAURABH drain. Sharad Hyatt MD Jun 09, 2017 08:19
[2017-06-09] MEDS ORDERED: OXYC1TAB63 PO (08:20)
[2017-06-09] MEDS ORDERED: MORPHINE SULFATE 2 MG/ML INJ IV PUSH PRN (08:30)
[2017-06-09] MEDS: SODIUM CHLORIDE 0.9% FLUSH 10 ML FLUSH IV FLUSH SCH ×2 (09:00→20:10)
[2017-06-09] MEDS: ALVIMOPAN 12 MG CAPSULE - Post-op dosing PO SCH ×2 (09:33→20:08)
[2017-06-09] MEDS: oxyCODONE/ACETAMINOPHEN 5 MG/325 MG TAB PO PRN ×3 (09:44→23:10)
--- NOTE | 2017-06-09 09:50 | PD.OP ---
cc: Sharad Hyatt MD Operative Report Date of Surgery: Jun 07, 2017 Preoperative Diagnosis: (1) Diverticulitis large intestine Postoperative Diagnosis: (1) Colonic diverticular abscess (2) Diverticulitis large intestine (3) Enterocolic fistula Procedure: Robot assisted laparoscopic sigmoid resection Small bowel resection Anesthesia: KRISTINA Surgeon: Sharad Hyatt Hot Die Press Operator(s): KRISTINA Operation and Findings: EBL: 200 cc Operative findings: Induration and thickening of sigmoid colon. Dense adhesions between loop of small intestine and sigmoid colon. When small amt of purulent fluid present and small bowel concerning for possible fistula vs abscess eroding into small bowel wall. Small bowel resection was performed approx 6cm. Procedure in detail: The patient was taken to the operating room and placed in the supine position and lithotomy with yellow fin stirrups. Gen. endotracheal anesthesia was induced. The abdomen was prepped and draped in usual sterile fashion and a surgical timeout was performed to verify correct patient procedure and site. She was administered appropriate preoperative antibiotics. An 8 mm incision was made in the left upper quadrant and the abdomen was entered directly using the optiview trocar. The abdomen was insufflated to 15 mmHg with CO2 gas which the patient tolerated well. A 12 mm robotic port was placed in the right lower quadrant about 3 cm superior and medial to the ASIS. A 12 mm trocar was placed superior and to the right of the umbilicus. The air seal trocar was placed as an entry level assistant manager port in the right upper abdomen. In the left lateral abdomen at the level of the periumbilical port and 8 mm robotic trocar was placed. Finally, the left upper quadrant 5 mm port was changed to an 8 mm robotic port. The patient was placed in steep Trendelenburg position and leaned to the left. The small bowel was attempted to be brought out of the pelvis. There were some various small adhesions between abdominal wall small bowel and sigmoid colon taken down. In addition, a loop of small bowel was densely adherent to the sigmoid colon. This was sharply cheating towards the sigmoid colon side. Small amount of purulent fluid drained. After separation there was concern for fistula versus erosion of the abscess cavity in the small bowel wall. This was left in place to be evaluated after the colectomy. Next the da Diaz robot was docked. The sigmoid colon was adherent to the lower left abdominal and pelvic sidewall. These adhesions were taken down with the hook electrocautery. The sigmoid colon was thickened and indurated. The mesentery of the sigmoid colon was carefully divided and the ureter identified along its course in the left lower abdomen. Next, the sigmoidal vessels were dissected circumferentially and divided using the vessel sealer device. Next the lateral colon was dissected free along the white line of Toldt. Attention was turned to the rectum. The rectum was able to be straightened out of the pelvis. The mesorectum in the upper rectum was divided with the vessel sealer. A site in upper rectum free of any inflammation or thickening was divided with a blue load using the da Diaz robotic stapler. This required 2 fires of the stapler. The remaining mesentery of the upper rectum and sigmoid colon was divided using the vessel sealer. A site was chosen at the distal descending colon which was healthy and free of inflammation and obvious diverticular disease. This was able to be brought down into the pelvis without any tension. The mesentery was further divided with the vessel sealer. The right lower quadrant robotic port was undocked. I scrubbed back into the case and an approximately 4 cm Pfannenstiel incision was made and the abdomen entered. The Luc wound retractor was placed. The colon was brought up through the incision. This was divided using the pursestring device at the distal descending colon. There was a small outpouching at a portion of the pursestring including mucosa and therefore a 3- 0 Vicryl was used to repair this outpouching and bring it into the pursestring. The specimen including the diverticular disease was then removed from the table. The sizers were used and the 29 EEA stapler was chosen and opened. The anvil was placed in this distal descending colon with the pursestring suture. It was placed back into the abdomen. The Luc wound retractor cap was placed. The robot was re-docked. The rigid sigmoidoscope was placed through the anus to the end of the rectal stump under visualization by Dr. Ramírez. The 29 EEA stapler was then placed into the rectal stump. The rectal stump was further cleared of extraneous fatty tissue with focal electrocautery. The stapler was opened through the rectum just superior to the staple line. The distal descending colon anvil was placed onto the stapler and it was fired. There was no tension or hematoma present. Saline was placed into the pelvis and the rectal stump insufflated with air. There was a leak present anteriorly in an area where the dionicio appeared to have partially pulled apart. 4-5 3-0 silk sutures were placed in simple interrupted fashion taking full-thickness bites to close this defect. The leak test was repeated and no leak was present. Attention then was turned to the questionable area of small bowel. This was grasped and the da Diaz robot was then undocked. I scrubbed back in and the small bowel was brought out through the Pfannenstiel incision. There was either deep erosion of abscess cavity and to the small bowel wall versus a fistula and therefore resection was performed. A [id number]-dkyx functional end-to -end anastomosis with CEE 55 blue loads and TX 60 to close the common enterotomy was performed. There was no tension or bleeding at the staple line. The mesentery was divided with clamp and 3-0 silk ties. The small mesenteric defect was closed with 3-0 silk. A 3-0 silk was also placed at the crotch of the staple line. Ports were removed and the abdomen allowed to desufflate. The fascia at the 12 mm port sites was closed with 0 Vicryl suture. The peritoneum of the Pfannenstiel incision was closed with running 0 Vicryl suture. The fascia at the Pfannenstiel incision was closed with running #1 PDS. The incision was irrigated. Skin was closed with 4-0 subcuticular Monocryl as well as Dermabond. The patient tolerated procedure well was x-rayed and taken to PACU in stable condition. Sharad Hyatt MD Jun 09, 2017 09:50
[2017-06-09] MEDS: ENOXAPARIN SODIUM 40 MG/0.4 ML SYRINGE SQ SCH (18:37)
[2017-06-09] MEDS: PANTOPRAZOLE SODIUM 40 MG VIAL IV PUSH SCH (20:10)
[2017-06-10 00:49] VITALS: BP 123/73; PULSE 67; RESP 20; TEMP 97; O2SAT 94
[2017-06-10] MEDS: KETOROLAC TROMETHAMINE 30 MG/ML (IVP) VIAL IV PUSH SCH ×4 (01:50→18:01)
[2017-06-10] MEDS: oxyCODONE/ACETAMINOPHEN 5 MG/325 MG TAB PO PRN ×4 (04:51→17:01)
[2017-06-10] MEDS: ALPRAZolam 0.25 MG TAB PO PRN ×2 (07:50→19:43)
[2017-06-10 08:00] VITALS: BP 139/71; PULSE 63; RESP 17; TEMP 96.8; O2SAT 93
[2017-06-10] MEDS: ALVIMOPAN 12 MG CAPSULE - Post-op dosing PO SCH ×2 (09:02→19:43)
[2017-06-10] MEDS: SODIUM CHLORIDE 0.9% FLUSH 10 ML FLUSH IV FLUSH SCH ×2 (09:02→19:44)
[2017-06-10 12:00] VITALS: BP 163/85; PULSE 70; RESP 19; TEMP 97.1; O2SAT 95
[2017-06-10 16:00] VITALS: BP 145/79; PULSE 77; RESP 16; TEMP 96.4; O2SAT 96
[2017-06-10] MEDS: ENOXAPARIN SODIUM 40 MG/0.4 ML SYRINGE SQ SCH (17:00)
[2017-06-10 17:26] VITALS: O2SAT 96
[2017-06-10] MEDS: PANTOPRAZOLE SODIUM 40 MG VIAL IV PUSH SCH (19:44)
[2017-06-10 20:27] VITALS: BP 145/70; PULSE 65; RESP 18; TEMP 96.7; O2SAT 94
[2017-06-11 00:18] VITALS: BP 133/82; PULSE 68; RESP 18; TEMP 97.5; O2SAT 96
[2017-06-11] MEDS: oxyCODONE/ACETAMINOPHEN 5 MG/325 MG TAB PO PRN ×3 (00:32→13:37)
[2017-06-11] MEDS: KETOROLAC TROMETHAMINE 30 MG/ML (IVP) VIAL IV PUSH SCH ×3 (01:48→13:38)
[2017-06-11 08:00] VITALS: BP 133/70; PULSE 63; RESP 17; TEMP 97.6; O2SAT 95
[2017-06-11] MEDS: ALVIMOPAN 12 MG CAPSULE - Post-op dosing PO SCH (08:42)
[2017-06-11] MEDS: SODIUM CHLORIDE 0.9% FLUSH 10 ML FLUSH IV FLUSH SCH (08:44)
[2017-06-11 09:20] VITALS: O2SAT 98
[2017-06-11 12:00] VITALS: BP 124/61; PULSE 76; RESP 18; TEMP 95.8; O2SAT 98
--- NOTE | 2017-06-11 15:53 | HHI.DS ---
Discharge Summary Admission Date Jun 07, 2017 at 09:54 Discharge Date: Jun 11, 2017 Admitting Diagnosis Chronic diverticular disease Procedures Robotic assisted sigmoid colectomy with small bowel resection Brief History Patient is a 57-year-old lady who has had recurrent episodes of diverticulitis over the last year. It was decided to proceed with surgery. She was taken to the operating room where she underwent robotic sigmoid colectomy. . CBC/BMP: 06/08/17 0534 06/08/1734 Significant Findings Chronic diverticulitis and inflammation of the small bowel with fistula between the small bowel and colon PE at Discharge LUNGS: Clear to percussion and auscultation HEART: Regular rate and rhythm ABDOMEN: Soft, minimally tender at the site of the incisions. There is no evidence of infection. She has no other significant tenderness, guarding, or rebound. Hospital Course The patient underwent surgery on the day of admission. Postoperatively she did extremely well and was returning to normal diet and bowel movements by the second to third postoperative day. She had no complications to her recovery. Pt Condition on Discharge: Good Discharge Disposition: Discharge Home Discharge Instructions DIET: Follow Instructions for: As Tolerated, No Restrictions Speech Therapy-Diet Recommends: Regular Activities you can perform: Regular-No Restrictions Additional Information The patient is to return to see Dr. Hyatt on in 3 days. She was given instructions on maintaining and measuring the Frank-Crouch drainage until then. It is okay for her to shower and return to normal activities and diet. Neri Wilkes MD Jun 11, 2017 15:53
== END 2017-06-11 17:20 | disposition home or self-care (01) | DRG 330 ==
LOC: HSDI 09:54 → N07A 18:57
PROVIDERS: ADMIT Surgery; ATTEND Surgery
PROC: 0DB84ZZ Excision of Small Intestine, Percutaneous Endoscopic Approach (ICD-10-PCS; 2017-06-07)
PROC: 8E0W4CZ Robotic Assisted Procedure of Trunk Region, Percutaneous Endoscopic Approach (ICD-10-PCS; 2017-06-07)
PROC: 3E0T3BZ Introduction of Anesthetic Agent into Peripheral Nerves and Plexi, Percutaneous Approach (ICD-10-PCS; 2017-06-07)
PROC: 0DTN4ZZ Resection of Sigmoid Colon, Percutaneous Endoscopic Approach (ICD-10-PCS; principal; 2017-06-07 11:06)
DX: K57.20 Diverticulitis of large intestine with perforation and abscess without bleeding (principal); K63.2 Fistula of intestine; J44.9 Chronic obstructive pulmonary disease, unspecified; K66.0 Peritoneal adhesions (postprocedural) (postinfection); F17.210 Nicotine dependence, cigarettes, uncomplicated
CPT/HCPCS: 80048; 84155; 85025; 86850; 86900; 86901; 86920; 88307; 94150; C9113; C9290; J0131; J0690; J1200; J1610; J1650; J1885; J2175; J2250; J2270; J2405; J3010; J7120